=== PATIENT | male | born 1960 | race Caucasian/White ===

== ENCOUNTER 2019-07-10 08:47 | Outpatient (CLI) | payer OTHER, SELFPAY | END 2019-07-10 08:48 | disposition home or self-care (01) | LOC: ANHCOVIDDT 08:48 | PROVIDERS: PCP Internal Medicine; Visit Provider Internal Medicine Gastroenterology | DX: Z01.818 Encounter for other preprocedural examination (principal); Z11.59 Encounter for screening for other viral diseases | CPT/HCPCS: 87635; C9803; U0003 ==

== ENCOUNTER 2019-07-13 02:15 | Day surgery (SDC) | payer OTHER, SELFPAY ==
[2019-07-07 14:38] VITALS: BMI 32.0
[2019-07-13 08:23] VITALS: BP 148/95; PULSE 65; RESP 20; TEMP 36.6; O2SAT 98
[2019-07-13] MEDS: LACTATED RINGERS 1,000 ML 150 ML IV CONT (08:40)
--- NOTE | 2019-07-13 08:43 | WPDANESEPPF ---
Anes - Initial Pre Proc Eval Procedure: Operation Date: 07/13/19 09:30 Proposed Procedures p Screening Colonoscopy - Pavel Curry MD Date/Time: 07/13/19 08:43 Surgeon: Pavel Curry MD Pre Op Diagnosis: Neoplasm Screening Patient Data Age: 59 Gender: M Height: 1.83 m Weight: 103.4 kg Last Vital Signs Temp 36.6 C 07/13/19 08:23 Pulse 65 07/13/19 08:23 Resp 20 07/13/19 08:23 BP 148/95 H 07/13/19 08:23 Pulse Ox 98 07/13/19 08:23 Allergies Allergy/AdvReac Type Severity Reaction Status Date / Time No Known Allergies Allergy Unknown Verified 07/13/19 08:22 Home Medications Medication Instructions Recorded Confirmed Type losartan 100 mg PO DAILY 07/07/19 07/07/19 History omeprazole 40 mg PO DAILY 07/07/19 07/07/19 History Patient hx anesthesia problems: none Family hx anesthesia problems: none [facility] Past Medical History Medical History (Updated 07/13/19 @ 08:44 by Brad Del Valle DO) Hypertension Family History Family History (System 03/15/19 @ 13:13 by Audelia Avila) Father Hypertension Family history of lung cancer Family history of malignant neoplasm of brain Mother Family history of glaucoma Other Carcinoma of colon Social History Social History (System 03/15/19 @ 13:13 by Audelia Avila) Smoking status: Never smoker Alcohol intake: current Gender identity (if verbalized by the patient): Male Anes - Eval Final PreProcedure Day of Procedure 07/13/19 08:43 Patient weight: obese Heart: regular rate and rhythm Lungs: clear to auscultation and normal air movement Airway: Mallampati scale class II Neurological: alert and oriented Last oral intake: >/= 8 hours ASA classification: III Emergent: no Anesthetic plan: proceed Anesthesia type and monitoring: general GIVS and standard monitoring Informed Consent: The patient's anesthetic plan and its attendant risks and benefits were discussed with the patient/family/POA. Questions were solicited and answers provided to the satisfaction of the patient/family/POA.
--- NOTE | 2019-07-13 09:12 | WPDGICN ---
Assessment and Plan Assessment and plan (1) Encounter for screening for colorectal malignant neoplasm: Code(s): Z12.11 - Encounter for screening for malignant neoplasm of colon; Z12.12 - Encounter for screening for malignant neoplasm of rectum Status: Acute Assessment and Plan: Patient presents for screening colonoscopy is never had one before his family history is significant that his father had colon polyps. further recommendations will be given after colonoscopy. (2) Family history of colonic polyps: Code(s): Z83.71 - Family history of colonic polyps Status: Acute GI Consult Note Consult date/time: 07/13/19 09:12 HPI: Shaun Paniagua III is a 59 year old male Seen in evaluation at the request of SALVADOR Estrada. Patient presents for neoplasia screening. Current weight appetite bowel movements are normal. He denies any blood in his stools. He denies abdominal pain. His bowel habits are normal and regular. Family history is significant his father had colon polyps at older age. Review of Systems Review of Systems: All systems reviewed & are unremarkable except as noted in HPI and below PMFSH Past Medical History Medical History Hypertension Family History Family History Father Hypertension Family history of lung cancer Family history of malignant neoplasm of brain Mother Family history of glaucoma Other Carcinoma of colon Social History Social History Smoking status: Never smoker Alcohol intake: current Gender identity (if verbalized by the patient): Male Meds Home Medications and Allergies Home Medications Medication Instructions Recorded Confirmed Type losartan 100 mg PO DAILY 07/07/19 07/07/19 History omeprazole 40 mg PO DAILY 07/07/19 07/07/19 History Allergies Allergy/AdvReac Type Severity Reaction Status Date / Time No Known Allergies Allergy Unknown Verified 07/13/19 08:22 Vital Signs Vital Signs - 24 hr 07/13/19 08:23 Temperature 36.6 C Pulse Rate 65 Respiratory Rate 20 Blood Pressure 148/95 H Pulse Oximetry 98 Exam Narrative: Exam Narrative: Physical exam reveals patient to be alert. Vital signs are stable. HEENT exam unremarkable. Lungs are clear to auscultation and percussion. Heart is without murmur or extra sounds. Abdominal exam bowel sounds are present soft nontender with no organomegaly. Digital external rectal exam is normal.
[2019-07-13] MEDS: SIMETHICONE ORAL SUSPENSION 20 MG/0.3 ML 30 ML BOTTLE 0.6 ML IRRIGATION (09:36)
[2019-07-13 09:48] VITALS: BP 100/60; PULSE 60; RESP 16; O2SAT 100
[2019-07-13 09:58] VITALS: BP 117/72; PULSE 60; RESP 25; O2SAT 100
[2019-07-13 10:08] VITALS: BP 134/81; PULSE 56; RESP 19; O2SAT 97
== END 2019-07-13 10:33 | disposition home or self-care (01) ==
PROVIDERS: PCP Internal Medicine; Visit Provider Internal Medicine Gastroenterology
PROC: 0DJD8ZZ Inspection of Lower Intestinal Tract, Via Natural or Artificial Opening Endoscopic (ICD-10-PCS; CPT 45378; principal; 2019-07-13 09:30)
DX: Z12.11 Encounter for screening for malignant neoplasm of colon (principal); K62.1 Rectal polyp; K64.8 Other hemorrhoids; Z83.71 Family history of colonic polyps; I10 Essential (primary) hypertension; E66.9 Obesity, unspecified; Z68.30 Body mass index [BMI] 30.0-30.9, adult
CPT/HCPCS: 45385; 88305; J2704; J7120

== ENCOUNTER 2023-09-15 07:27 | Outpatient (CLI) | payer OTHER, SELFPAY ==
--- NOTE | ~2023-09-15 | XR_ITS ---
XR knee RT 3V Ordering provider: Yajaira Estrada, BERHANE History: . R knee pain . Comparison: None. FINDINGS: BONES: No acute fracture or dislocation. JOINT SPACES: Narrowing of the medial compartment. Narrowing of the patellofemoral joint. SOFT TISSUES: Normal. IMPRESSION: No acute osseous abnormality right knee. Reviewed, dictated and finalized at location A.
== END 2023-09-15 07:28 ==
PROVIDERS: PCP Physician Assistant; Visit Provider Physician Assistant
DX: M25.561 Pain in right knee (principal)
CPT/HCPCS: 73562

== ENCOUNTER 2023-11-05 13:47 | Outpatient (CLI) | payer OTHER, SELFPAY ==
--- NOTE | 2023-11-05 14:06 | ECG_ITS ---
Test Date: 2023-11-05 14:19:35 Measurements Intervals [place] Rate: 62 P: 35 RI: 172 QRS: 29 QRSD: 93 T: 56 QT: 381 QTc: 389 Interpretive Statements SINUS RHYTHM MINIMAL Q WAVES- INFERIOR LEADS BASELINE ARTIFACT- I, II, III, AVR, AVL BORDERLINE ECG No previous ECG available for comparison Electronically Signed On 11-05-2023 14:42:50 CDT by Fredrick Esteves D.O.
[2023-11-05 14:12] LABS: Hematocrit 44.3 % (42.0-52.0); Hemoglobin 15.2 g/dL (14.0-18.0)
[2023-11-05 14:19] LABS: Albumin Level 4.9 g/dL (3.5-5.1); Estimated Glomerular Filt Rate > 60; Glucose 123 mg/dL (65-110)
[2023-11-05 14:40] LABS: Hemoglobin A1C 5.8 % (<5.7)
== END 2023-11-05 13:48 | disposition home or self-care (01) ==
LOC: ANHLAB 13:48
PROVIDERS: PCP Physician Assistant; Visit Provider Orthopaedic Surgery
DX: M17.31 Unilateral post-traumatic osteoarthritis, right knee (principal); M17.11 Unilateral primary osteoarthritis, right knee; I10 Essential (primary) hypertension
CPT/HCPCS: 36415; 82040; 82565; 82947; 83036; 85014; 85018; 93005

== ENCOUNTER 2024-01-05 13:47 | Outpatient (CLI) | payer OTHER, SELFPAY ==
[2024-01-05 15:13] LABS: Basophils Absolute Auto 0.1 K/mm3 (0.0-0.1); Basophils Percent Auto 0.9 % (0.2-1.2); Eosinophils Absolute Auto 0.3 K/mm3 (0-0.3); Hematocrit 42.5 % (42.0-52.0); Hemoglobin 14.5 g/dL (14.0-18.0); Immature Granulocyte Absolute 0.02 K/mm3 (0.00-0.031); Immature Granulocyte Percent A 0.3 % (0-0.5); Lymphocytes Absolute Auto 2.14 K/mm3 (0.9-3.2); Lymphocytes Percent Auto 33.9 % (18.3-44.2); Mean Corpuscular HGB Conc 34.1 g/dl (32-36); Mean Corpuscular Hemoglobin 31.1 pg (26-34); Mean Corpuscular Volume 91.2 fl (80-100); Mean Platelet Volume 11.2 fl (7.4-10.4); Monocytes Absolute Auto 0.8 K/mm3 (0.1-0.6); Monocytes Percent Auto 12.2 % (2.6-8.5); Neutrophils Absolute Auto 3.1 K/mm3 (1.3-6.7); Neutrophils Percent Auto 48.7 % (45.5-73.1); Platelet Count Result 202 k/mm3 (150-375); Red Blood Count 4.66 M/mm3 (4.6-6.20); Red Cell Distribution Width 12.6 % (11.5-14.5); White Blood Count 6.3 K/mm3 (4.5-10.0)
[2024-01-05 15:24] LABS: Albumin Level 4.8 g/dL (3.5-5.1); Estimated Glomerular Filt Rate > 60; Glucose 98 mg/dL (65-110)
[2024-01-05 16:36] LABS: MRSA (PCR) NOT DETECTED (NOT DETECTE)
[2024-01-05 16:45] LABS: Urine Cotinine NEGATIVE
== END 2024-01-05 13:48 | disposition home or self-care (01) ==
LOC: ANHSURGERY 13:52
PROVIDERS: PCP Physician Assistant; Visit Provider Orthopaedic Surgery
DX: M17.11 Unilateral primary osteoarthritis, right knee (principal); Z01.818 Encounter for other preprocedural examination
CPT/HCPCS: 80307; 82040; 82565; 82947; 85025; 87641

== ENCOUNTER 2024-01-27 01:34 | Day surgery (SDC) | payer OTHER, SELFPAY ==
[2024-01-05 14:05] VITALS: BP 146/81; PULSE 52; RESP 16; TEMP 36.7; O2SAT 98; BMI 32.7
--- NOTE | 2024-01-05 14:22 | PC.NURSE ---
Report to the Outpatient Waiting Room, entrance under the green pavilion located off [facility], at time ____0600am___ on date _01/27/24 . Planned Procedure Time: 0730am .? Time changes happen often and if your time is changed the preop area will call you the afternoon before. - You and your visitor will be asked to self-screen and do not enter if you have any COVID symptoms. Please call surgeon if you need to reschedule. - A mask is optional within the hospital at this time. Patients may have clear liquids (water, carbonated beverages, clear teas, apple juice) until 3 hours prior to surgery with a maximum of 20 ounces. - No food from midnight until time of surgery and no smoking (0430am) Take only the following medications with a SIP of water on the morning of surgery: __Amlodipine, tylenol if needed for pain DO NOT STOP ANY OF YOUR OTHER PRESCRIPTION MEDICATIONS PRIOR TO SURGERY EXCEPT THE FOLLOWING Medications to discontinue per physician None Date to take last dose____None Please no make-up, nail german, hairspray, perfume, deodorant, or body powder the day of surgery.? No jewelry (including any body piercings) or valuables the day of surgery, leave them at home.? Please take a shower or bath the night before, or the morning of, surgery with an antibacterial soap.?( Dial ) Wear comfortable, loose fitting clothing.? - Jewelry must be removed prior to entering the operating room.? Rings and piercings that are not removed may be cut off. - The hospital will not accept responsibility for valuables.? - Please leave all valuables, including medications, at home the day of surgery. If you are going home after surgery, a licensed freight delivery driver must drive you home.? - NO public transportation without another adult if you receive anesthesia. - We recommend that an adult stay with you for 24 hours following discharge. - We also recommend that you do not drive, make important decision, drink alcoholic beverages, or take any drugs that were not prescribed by your health care provider for at least 24 hours after your discharge time. Follow any additional instructions given to you from your surgeon. Telephone instructions given to __Patient and asked if any additional questions and then verbalized understanding. Patient advised to call surgeon office or pre surgery nurse liaison [phone] if any additional questions.
--- NOTE | 2024-01-26 15:45 | WPDANESEPP ---
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 Patient Data Age: 63 Gender: M Height: 1.8 m Weight: 106.4 kg Last Vital Signs Temp 36.7 C 01/05/24 14:05 Pulse 52 L 01/05/24 14:05 Resp 16 01/05/24 14:05 BP 146/81 H 01/05/24 14:05 Pulse Ox 98 01/05/24 14:05 O2 Del Method Room Air 01/05/24 14:05 Allergies Allergy/AdvReac Type Severity Reaction Status Date / Time No Known Allergies Allergy Unknown Verified 01/05/24 14:03 Home Medications Medication Instructions Recorded Confirmed Type losartan 100 mg tablet 100 mg PO DAILY 07/07/19 01/05/24 History omeprazole 40 mg capsule,delayed 40 mg PO DAILY 07/07/19 01/05/24 History release amlodipine 10 mg tablet 10 mg PO DAILY 01/05/24 01/05/24 History Patient hx anesthesia problems: post op nausea/vomiting Family hx anesthesia problems: none Results Review: All pre-operative results and documents have been reviewed as part of the pre-operative evaluation. [facility] Past Medical History Medical History (Updated 01/26/24 @ 15:48 by Kathryn Pinto CRNA) Hypertension Family History Family History Father Hypertension Family history of lung cancer Family history of malignant neoplasm of brain Mother Family history of glaucoma Other Carcinoma of colon Social History Social History Smoking status: Former smoker Tobacco type: cigars Smoking end date: 12/24/23 Additional smoking assessment comments: No cigars in 10 days Alcohol intake: current Drinks per week: 1 Substance use: current Substance use type: other Other substance usage details: gummies to sleep few times a month Living arrangements: with family Additional living arrangements comments: Gender identity (if verbalized by the patient): Male Spiritual care concerns: No Exam Day of Procedure 01/26/24 15:45 Patient weight: obese
[2024-01-27] VITALS (16 sets, daily range): BP systolic 130–158; BP diastolic 77–99; PULSE 66–97; RESP 12–18; TEMP 36.7–36.8; O2SAT 91–98
--- NOTE | ~2024-01-27 | XR_ITS ---
EXAMINATION: [id number] DATE: 01/27/2024 10:57 SUPERVISOR PRESS ROOM INDICATION: Right total knee arthroplasty TECHNIQUE: 2 views right knee FINDINGS: There is a right total knee arthroplasty in expected position. Subcutaneous gas with fluid and air in the joint are consistent with recent surgery. No evidence of periprosthetic fracture. IMPRESSION: 1. Recent right total knee arthroplasty. Reviewed, dictated and finalized at location B. [facility] RO[facility]
[2024-01-27] MEDS: LACTATED RINGERS 1,000 ML 30 ML IV CONT ×2 (06:45→10:19)
[2024-01-27] MEDS: TRANEXAMIC ACID 1,000MG/ISO100 1,000 MG/100 ML BAG 200 MG IVPB (06:45)
[2024-01-27] MEDS: ACETAMINOPHEN 500 MG TABLET 1000 MG PO (06:45)
--- NOTE | 2024-01-27 07:00 | P.PNAN_ITS ---
Anes - Eval Final PreProcedure Day of Procedure 01/27/24 07:00 Patient weight: obese Heart: regular rate and rhythm Lungs: clear to auscultation Airway: Mallampati scale class II Neurological: alert and oriented Last oral intake: >/= 8 hours ASA classification: III Emergent: no Anesthetic plan: proceed Anesthesia type and monitoring: general LMA and standard monitoring Results Review: All pre-operative results and documents have been reviewed as part of the pre- operative evaluation. Informed Consent: The patient's anesthetic plan and its attendant risks and benefits were discussed with the patient/family/POA. Questions were solicited and answers provided to the satisfaction of the patient/family/POA.
--- NOTE | 2024-01-27 07:16 | WPDHPUPDATE1 ---
History and Physical Update Update Date/Time: 01/27/24 07:16 History and Physical has been reviewed, including an updated exam of the patient. There are NO changes in the patient's condition. Risks, benefits, and alternatives have been discussed and questions answered. Patient agrees to proceed with procedure.
--- NOTE | 2024-01-27 07:19 | P.OP_ITS ---
Procedure Note - Detailed Date of Procedure 01/27/24 Pre-op Diagnosis Right knee post traumatic degenerative arthritis. Post-op Diagnosis Same Procedure Performed Calipered, kinematically aligned total knee replacement right knee. 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 Injured during football in his youth. History of several open surgeries over the years. Contracture 10? to 90?. Findings According to the calipered kinematic alignment principles, the knee was balanced by the following verification checks incorporating 6 caliper measurements, using an insert goniometer to select the insert thickness, and adjusting the tibial resection following the kinematic alignment algorithm (see figure 160.10 published in [employer] chapter on kinematic alignment total knee arthroplasty.) The steps verified the femoral and tibial components were kinematically aligned coincident to the patient's pre arthritic joint lines, which closely restored the [place] tibial compartment forces and ligament laxities without ligament release. The Medacta GMK SperiKA knee, designed specifically for kinematic alignment, fit optimally. PCL released. The record of verification checks were documented and scanned into the chart. Distal Femoral Resection: Distal Medial 6 mm(cartilage worn), Distal Lateral 6 mm(cartilage worn) Target thickness of 8mm Unworn, 6mm Worn (No Cartilage). Posterior Femoral Resection: Posterior Medial 5 mm(cartilage worn), Posterior Lateral 5 mm(cartilage worn). Target thickness of 7mm Unworn, 5mm Worn (No Cartilage). Description of Procedure General anesthesia was administered. A well-padded tourniquet was placed high on the thigh. The limb was prepped and draped in the usual sterile fashion. The limb was exsanguinated and the tourniquet inflated to 300 mmHg. A longitudinal incision was created over the midline of the knee. Sharp dissection was taken through subcutaneous tissues. Electrocautery was used for hemostasis. A trivector approach to the knee joint was performed. The ACL, anterior horns of the menisci, and fat pad were excised, and a subperiosteal dissection was carried along the posterior medial border of the tibia. The thickness of the [place] patella was measured with a caliper. The patella was resected using the oscillating saw. The best fitting anatomic patella button was selected. The fixation holes were drilled. When the patella and patella buttons combined thickness was thicker than the [place] patella, the patella was recut. Starting midway between the top of the notch in the anterior femoral cortex, I drilled a 9 mm diameter hole parallel to the anterior cortex to minimize flexion of the femoral component and promote patella tracking. I verified the existence of a 5-10 mm bone bridge between the posterior aspect of the hole and the anterior limit of the intercondylar notch. An intraosseous positioning bon was inserted 10 cm into the femur perpendicular to the distal joint line and parallel to the anterior cortex. I used a distal femoral referencing guide that compensated 2 mm when the cart ilage was worn on the distal medial femoral condyle, and 2 mm when the cartilage was worn on the distal lateral femoral condyle. The basis for setting the distal and posterior femoral resection guide is knowing that the varus and valgus grade II to IV Kellegren-Chauncey osteoarthritic knees have negligible bone wear at 0? and 90? and that the mean full-thickness cartilage wear approximates 2 mm. I measured the thickness of distal femoral resections with a caliper to +/- 0.5 mm. The thickness of each resection was adjusted to match the thickness of the respective condyle of the femoral component within 0.5 mm of target after compensating for cartilage wear and kerf. When the distal resection was 1-2 mm too thin, a recut guide was used to adjust the cut. When the distal resection was too thick, a 1 or 2 mm thick washer was fixed to the back of the 4-in-1 chamfer block to rick a corrective gap between the femoral component and distal femur. I set posterior femoral referencing guide at 0? orientation to position the pin holes for the 4 in 1 chamfer block. The judah wing measured the width of the distal femoral resection and selected the size of the 4 in 1 chamfer block and femoral component. The AP sizer confirmed the size. I measured the thickness of the posterior femoral resections with a caliper before making the anterior and chamfer cuts. I adjusted the thicknesses of each resection to match the thickness of the respective condyle of the femoral component within +/-0.5 mm after compensating for cartilage wear and curve. When a posterior resection femoral resection was 1-2 mm too thick or thin a corrective correction was made by shifting or rotating the 4 in 1 chamfer block as needed. The chamfer block was secured in the correct position with compression screws. The anterior and chamfer femoral resections were made. These caliper measurements and corrections verified that the femoral component was set coincident with the patient's pre-arthritic distal and posterior femoral joint lines. I removed all the medial and lateral femoral and tibial osteophytes to restore the pre arthritic length of the medial and lateral collateral ligaments. I enoch AP lines along the major axis of the lateral tibial plateau in between the tibial spines which identified the flexion extension plane of the knee. A conventional extramedullary tibial resection guide was applied to the ankle. An judah wing was placed medially in the saw slot. The varus valgus angle of the tibial resection guide was adjusted until the guide paralleled the proximal tibial articular surface after compensating for cartilage and bone wear. The slope of flexion extension angle of the tibial resection guide was adjusted until the judah wing paralleled the slope of the medial tibia after compensating for wear. The AP axis of the tibial resection guide was adjusted parallel to the two lines. The proximal tibia was resected, partially releasing the insertion of the posterior cruciate ligament. The thickness of the medial and lateral lateral tibial condyle was measured at the base of the tibial spines. I visually verified the slope of the medial border of the resection was parallel to the patient's pre arthritic slope after compensating for cartilage and bone wear. I removed the remnants of the posterior horns of the menisci and posterior osteophytes and cauterized the inferior lateral genicular vessels. The Aquamantys bipolar device was also used to for additional hemostasis. When the knee had a preoperative flexion contracture of 20? or more I teased the capsule off the posterior femur with a curved 3 quarter-inch osteotome. I administered the posterior femoral periosteal injection by delivering 10 cc using a 20 gauge spinal needle at the most medial and 10 cc at the most lateral femoral spur surface which reduced the risk of injury to the posterior neurovascular structures. I followed 6 options in a decision tree to fine tune the varus valgus and poste rior slope orientation of the tibial component to restore the patient's pre arthritic tibial joint line and limb alignment. First, I adjusted the varus- valgus orientation of the proximal tibia resection working in 1 degree to 2 degree increments until there was negligible medial and lateral lift off of the distal femoral and proximal tibial resection from the spacer block during a varus valgus laxity assessment in extension. I selected the largest anatomic shape trial tibial base plate that fit within the cortical boundary of the proximal tibial resection. The base plate was best fit parallel to the cortical boundary which set the Internal-external orientation of the anterior to posterior and medial to lateral positions. The best fit method set the AP axis of the tibial base plate and insert parallel to the flexion extension plane of the pre arthritic knee. I pinned the trial tibial base plate, prepared the cruciate slot, and fixed the base plate to the tibia with the cruciate stem. I inserted the trial femoral component. The knee was placed in full extension. Varus valgus laxity is of the knee with trial components were assessed. When asymmetric laxity was observed a 1-2 degree varus or valgus recut guide was used to fine tune the tibial resection until the laxity was 1 degree or less in full extension like the [place] knee. The following steps determined the optimal insert thickness within +/-1 mm. First I inserted an insert goniometer that matched the thickness of the spacer block. I reduced the patella and then with the knee in maximum extension, I verified the knee hyperextended a few degrees and had negligible varus valgus laxity, like the pre arthritic knee. Next, I measured the external tibial orientation which was the angle the insert goniometer intersected the sagittal line on the medial condyle of the femoral trial component. Then with the knee in 15-30 degrees flexion I verified a 3-4 mm gap in the lateral compartment and no gap in the medial compartment during a 2nd varus valgus laxity test. Next, I placed the knee in 90? of flexion and the foot resting on the operating table and measured the internal tibial orientation. I repeated the steps until I identified the insert thickness that provided the highest external tibia orientation in extension and the highest internal tibial orientation at 90? flexion without anterior lift-off of the insert from the tibial base plate. The insert with this thickness was implanted. I applied a posterior drawer test with the tibia distracted by gravity and verified no posterior subluxation of the tibia relative to the femur. The patella remained centered on the trochlea and tracked well throughout the entire arc of flexion and extension. I used pulse lavage to clean the bony surfaces of debris and dried bone. I cemented the tibial, femoral, and patellar components using 1 bag of methylmethacrylate with Gentamycin, then rechecked the stability at full extension, 15-30 degrees, and 90? flexion and verified faith of the entire arc of motion of the knee. The circulating nurse confirmed the sponge and needle counts were correct. I used pulse lavage to rinse the joint and wound. The extensor mechanism was closed with interrupted #1 Vicryl suture and #1 running Stratafix suture. The subcutaneous layer was closed with interrupted #1 Vicryl suture followed by 2-0 Stratafix and 3-0 Stratafix. Steri-Strips placed on the skin. Silver impregnated occlusive dressing applied to the wound. A light gauze wrap and Kd bandage were placed. The patient was transferred to the recovery room in stable condition. There were no complications. Implants Medacta K spheriKA Femoral component SpheriKA size 6, tibial component size 5, vitamin-E flex insert, thickness 12mm, Anatomic patella implant size 3. Estimated Blood Loss 100 Drains No Pathology None sent Complications No immediate complications Condition Stable Disposition PACU [facility] Billing Surgery - Charge Forward: Surgery Billing
[2024-01-27] MEDS: ceFAZolin 2 GM/D5W 50 ML 2 GM/50 ML BAG IVPB (08:00)
[2024-01-27] MEDS: SODIUM CHLORIDE 0.9% IV 37.7 ML, MORPHINE SULFATE INJ (*CRX) 2 MG, ROPivacaine HCL 1% 2... INFILTRATE (08:10)
[2024-01-27] MEDS: GENTAMICIN BONE CEMENT REFOBACIN 1 EACH TOPICAL (09:08)
[2024-01-27] MEDS: TRANEXAMIC ACID 1,000 MG/10 ML AMPUL 1000 MG IV PUSH (09:50)
[2024-01-27] MEDS: fentaNYL CITRATE INJ (*CRX) 100 MCG/2 ML VIAL 25 MCG IV PUSH ×2 (11:35→11:47)
--- NOTE | 2024-01-27 12:28 | SUR.PHASEII ---
1210 PHYSICAL AND OCCUPATIONAL THERAPISTS CALLED. LUNCH ORDERED. 1225 PHYSICAL THERAPIST HERE WITH PATIENT.
[2024-01-27] MEDS: oxyCODONE HCL (*CRX) 5 MG TAB IR PO (12:38)
--- NOTE | 2024-01-27 12:41 | SUR.PHASEII ---
1230- PT/OT at bedside to work with patient
[2024-01-27] MEDS: ONDANSETRON INJ 4 MG/2 ML VIAL IV PUSH (13:14)
--- NOTE | 2024-01-27 13:15 | SUR.PHASEII ---
Pt requesting Zofran script to discharge with for at home - MD Dias and Shahbaz (PA) notified.
--- NOTE | 2024-01-27 13:54 | SUR.PHASEII ---
1354 - PT at bedside to work with patient. Patient has been eating lunch tray delivered by dietary with no nausea / vomiting.
--- NOTE | 2024-01-27 14:44 | SUR.PHASEII ---
1430 - Pt has been cleared by PT and OT to discharge home. MD Dias at bedside. Pt states he feels good and is ready to discharge home.
== END 2024-01-27 14:53 | disposition home or self-care (01) ==
PROVIDERS: PCP Physician Assistant; Visit Provider Orthopaedic Surgery
PROC: (CPT 27447; principal; 2024-01-27 07:30)
DX: M17.31 Unilateral post-traumatic osteoarthritis, right knee (principal); T14.90XS Injury, unspecified, sequela; X58.XXXS Exposure to other specified factors, sequela; I10 Essential (primary) hypertension; E66.9 Obesity, unspecified; Z68.32 Body mass index [BMI] 32.0-32.9, adult; Z87.891 Personal history of nicotine dependence
CPT/HCPCS: 27447; 36415; 73560; 86850; 86900; 86901; 97110; 97161; 97165; 97530; C1776; A9270; C1713; J0171; J0690; J1100; J1171; J1885; J2003; J2250; J2270; J2405; J2704; J2795; J3010; J7120

== ENCOUNTER 2024-06-23 01:12 | Day surgery (SDC) | payer OTHER, SELFPAY ==
[2024-06-14 08:13] VITALS: BMI 32.8
--- OUTSIDE RECORDS SUMMARY | 2024-06-23 01:15 | XMS_ITS ---
Author Organization Unknown Medications Medication Instructions Effective Dates (start - sto p) Status amlodipine 5 MG Oral Tablet 2022T00:00:00.000+00:00 - Completed amlodipine 5 MG Oral Tablet 2021T:00:00.000+00:00 - Completed amlodipine 5 MG Oral Tablet 2022:00:00.000+00:00 - Completed losartan potassium 100 MG Or al Tablet 3055-64-10O24:00:00.000+00:0 0 - Completed omeprazole 40 MG Delayed Rel ease Oral Capsule 8308-15-49T95:00:00.000+00:0 0 - Completed losartan potassium 100 MG Or al Tablet 8258-53-18T48:00:00.000+00:0 0 - Completed omeprazole 40 MG Delayed Rel ease Oral Capsule 5607-91-97P87:00:00.000+00:0 0 - Completed losartan potassium 100 MG Or al Tablet 5944-37-33Q86:00:00.000+00:0 0 - Completed losartan potassium 100 MG Or al Tablet 5275-97-08K51:00:00.000+00:0 0 - Completed omeprazole 40 MG Delayed Rel ease Oral Capsule 8300-64-27I40:00:00.000+00:0 0 - Completed omeprazole 40 MG Delayed Rel ease Oral Capsule 6623-90-46I24:00:00.000+00:0 0 - Completed amlodipine 5 MG Oral Tablet 2021:00:00.000+00:00 - Completed Patient Care team information Name Category Status Period Participants - - Proposed period not known -
--- OUTSIDE RECORDS SUMMARY | 2024-06-23 01:15 | XMS_ITS | Continuity of Care Document ---
Author Organization [facility] Address [address] [place] [address] [address] [place] [address] Phone Care Team Providers Care Band Saw Runner Name Role Phone Doisy, Edward Unavailable Unavailable Advance Directives Directive Yes / No Effective Date File Name No Information Encounters Encounter Description Practice Location Reason(s) For Visit Diagnoses Date Provider Providers Copied on Encounter [facility], [address], [place], [place], [id number], [place] tel:[phone] SEC Courtney Valdez No Information 0-200 1 Doisy Edward. [address] , [address], [place], [address], [place]. tel:[phone] Family History Family Member Type Diagnosis Age At Onset No Information Payers Payer name Insurance type Covered constitution party ID Authoriza tion(s) [employer] SOI CI [id number] Social History Type Description Quantity Date Captured Comments Sex Male Smoking Status No Information Chief Complaint And Reason For Visit No Information Reason For Referral Reason For Referral No Information History Of Present Illness Encounter Date Complaint History Of Prese nt Illness No Information Functional Status Date Functional Assessmen t No Information Instructions Date Instruction Additional Infor mation No Information Assessments Type Assessment Date No Information Patient Care Teams Name Effective Dates (start - stop) Status Members No Information
--- OUTSIDE RECORDS SUMMARY | 2024-06-23 01:15 | XMS_ITS | Data Portability ---
Author Organization [facility] [address] [place] [address] Care Team Providers Care Sizing Machine Operator Name Role Phone ILA AGRAWAL Primary Care Provider Unavailab le Assessment No assessment recorded. Plan of Treatment Reminders Order Date Submit Date Provider Last Modified By Organization Details Last Modified Time Details Appointments ANY 15 2024 08:00A M SALVADOR Echevarria Not available Not available Not available Lab TSH + free T4, serum 2023 024 Proenza Schouer [facility], [address], [place], [address], 09/14/2023 09:28:42 CMP, serum or plasma 2023 024 [employer] [facility], [address], [place], [address], 09/20/2023 16:36:09 CBC w/ auto diff 2023 024 [email or web address] [facility], [address], [place], [address], 09/20/2023 16:36:31 lipid panel, serum 2023 024 Proenza Schouer [facility], [address], [place], [address], 09/14/2023 09:28:42 PSA, serum or plasma 2023 024 [employer] [facility], [address], [place], [address], 09/20/2023 16:37:11 HbA1c (hemoglob in A1c), blood 2023 024 [email or web address] [facility] [facility], [address], [place], [address], 09/20/2023 16:37:06 Referral orthopedi c surgeon referral 2023 024 SUZETTE Dias MD, [address], [address], [place], [address], 11/18/2023 17:04:35 Procedures None recorded. Surgeries None recorded. Imaging XR, knee, 3 view 2023 024 [facility], [address], [place], [address], 09/16/2023 07:29:20 Medication Orders amlodipin e 10 mg tablet 2023 024 [id number], [address] [place], [address], 03/14/2024 09:31:27 Patient TargetsNo targets recorded. Patient Instructions Encounter Date Encounter Id Patient Instructions Last Modified By Organization Details Last Modified Time 08/20/2023 [id number] A healthy lifestyle: care instructions Not available 08/20/2023 09:12:49 03/24/2024 [id number] A healthy lifestyle: care instructions Not available 03/24/2024 09:33:49 Reason for Referral Orthopedic Surgeon Referral for Pain of right knee joint Referring Physician: Ila Agrawal, Internal Medicine, Encounter Date: 08/20/2023 Results Created Date Observation Date Name Description Value Unit Range Abnormal Flag Note LastModifiedBy Organization Detail LastModifiedTime 09/16/19 24 09/15/2023 XR, knee, 3 view No observ ation record ed. [facility] [address], [place], [address], 09/20/2023 16:35:22 01/27/20 24 01/27/2024 XR, knee, 3 view No observ ation record ed. [facility] [address], [place], [address], 01/27/2024 14:33:51 Result Notes None recorded. Problems Name Problem SNOMED Code Status Onset Date Resolution Date Notes Provider Name and Address Organization Details Recorded Time Benign essential hypertensio n 7535621 Active 2023 SALVADOR Echevarria Attn: Accountin g,[address] [facility], [place], [address], [place] [facility] 4 08:43:10 Gastroesoph ageal reflux disease without esophagitis 874189871 Active 2023 SALVADOR Echevarria Attn: Accountin g,[address] [facility], [place], [address], [place] [facility] 4 08:43:11 Body mass index 30+ - obesity 852565668 Active 2023 SALVADOR Echevarria Attn: Accountin g,[address] [facility], [place], [address], [place] [facility] 4 08:45:07 Obesity 403972845 Active 2023 SALVADOR Echevarria Attn: Accountin g,[address] [facility], [place], [address], [place] [facility] 4 08:45:08 Pain of right knee joint 5041056507167 00 Active 2023 SALVADOR Echevarria Attn: Accountin g,[address] [facility], [place], [address], [place] [facility] 4 14:37:47 Long-term drug therapy Active 2023 SALVADOR Echevarria Attn: Accountin g,[address] [facility], [place], [address], [place] [facility] 4 14:37:48 Blood glucose outside reference range 208474314 Active 2024 SALVADOR Echevarria Attn: Lala bynum,[address], [place], [address], [facility] 08:50:44 Problem Notes None recorded. Procedures Surgical History Date Name Laterality Status Provider Name and Address Organization Details Recorded Time Knee Surgery completed Oscar Kaur MA [facility] 03/14/2024 09:32:09 Imaging Results Imaging Date Name Status LastModified by [facility] Details LastModified Time 09/15/2023 XR, knee, 3 view completed [facility] [address], [place], [address], 09/20/2023 16:35:22 01/27/2024 XR, knee, [address] [facility] [address], [place], [address], 01/27/2024 14:33:51 Procedure Notes None recorded. Medical Equipment None Reported. Allergies No known drug allergies Medications Name Sig Start Date Stop Date Status Note LastModified by Organization Details LastModified Time blood pressu solution kit 08/19 completed Not Available Not Available Not Available meloxicam 15 mg tablet Take 1 tablet every day by oral route for 30 days. active Patient is not taking this medicati on anymore. Not Available Not Available Not Available prednison e 5 mg tablet TAKE 1 TABLET BY MOUTH DAILY FOR 3 WEEKS 03/14 completed Not Available Not Available Not Available amlodipin e 5 mg tablet TAKE 1 TABLET BY MOUTH EVERY DAY 08/19 completed Not Available Not Available Not Available omeprazol e 40 mg capsule,d elayed release TAKE 1 CAPSULE BY MOUTH EVERY DAY active Patient is not taking this medicati on anymore. Not Available Not Available Not Available oxycodone -acetamin ophen 5 mg-325 mg tablet 1 - 2 TABLET ORALLY EVERY 4 - 6 HOURS NEEDED FOR PAIN FOR 7 DAYS 03/14 completed Not Available Not Available Not Available amlodipin e 10 mg tablet TAKE 1 TABLET BY MOUTH EVERY DAY active Not Available Not Available No t Available ondansetr on 4 mg disintegr ating tablet 4 MG ORALLY EVERY 8 HOURS active Patient is not taking this medicati on anymore. Not Available Not Available Not Available losartan 100 mg tablet TAKE 1 TABLET BY MOUTH EVERY DAY active Not Available Not Available No t Available Vitals Date Recorded Body height Body mass index (BMI) Body weight Respiratory rate Oxygen saturation Oxygen saturation in Arterial blood by Pulse oximetry Heart rate Systolic blood pressure Diastolic blood pressure Provider Name and Address Organization Details Last Updated DateTime 4 182.88 cm 31.7 kg/m2 712517. 61 g 20 /min 99 % 99 % 88 /min 138 mm[Hg] 90 mm[Hg] Oscar Kaur MA [facility] 4 08:40:03 Date Recorded Systolic blood pressure Diastolic blood pressure Systolic blood pressure Diastolic blood pressure Provider Name and Address Organization Details Last Updated DateTime 08/20/2023 150 mm[Hg] 90 mm[Hg] 148 mm[Hg] 90 mm[Hg] SALVADOR Echevarria Attn: Accounting ,[address] [place], [address] , [facility] 4 09:11:45 Date Recorded Body height Oxygen saturation Oxygen saturation in Arterial blood by Pulse oximetry Heart rate Body mass index (BMI) Body weight Systolic blood pressure Diastolic blood pressure Provider Name and Address Organization Details Last Updated DateTime 5 182.88 cm 98 % 98 % 88 /min 31.7 kg/m2 648698. 61 g 138 mm[Hg] 82 mm[Hg] Oscar Kaur MA [facility] 5 09:35:19 Date Recorded Body height Body mass index (BMI) Body weight Heart rate Oxygen saturation Oxygen saturation in Arterial blood by Pulse oximetry Systolic blood pressure Diastolic blood pressure Provider Name and Address Organization Details Last Updated DateTime 5 182.88 cm 32 kg/m2 014450. 52 g 67 /min 98 % 98 % 130 mm[Hg] 68 mm[Hg] Tonya Joyner MA [facility] 5 09:09:08 Date Recorded Respiratory rate Provider Name a nd Address Organization Details Last Updated DateTime 03/24/2024 16 /min SALVADOR Echevarria Attn: Accounting,[address] [place], [address], [facility] 03/24/2024 09:33:18 Social History Question Answer Notes LastModified by Organizat ion Details LastModified Time Tobacco Smoking Status Never Smoker CHICHI Bruno, [facility] 08/20/2023 08:36:42 Do You Have An Advance Directive? No Information not available 08/20/2023 What Is Your Level Of Alcohol Consumption? Occasional 1X A MONTH Information not available 08/20/2023 Are You Blind Or Do You Have Difficulty Seeing? No Glasses Information not available 08/20/2023 What Is Your Level Of Caffeine Consumption? Moderate Tea Information not available 08/20/2023 In The 14 Days Before Symptom Onset, Have You Had Close Contact With A Laboratory-confir med COVID-19 While That Case Was Ill? No Information not available 08/19/2023 In The 14 Days Before Symptom Onset, Have You Had Close Contact With A Person Who Is Under Investigation For COVID-19 While That Person Was Ill? No Information not available 08/19/2023 Have You Been To An Area Known To Be High Risk For COVID-19? No Information not available 08/19/2023 Are You Deaf Or Do You Have Serious Difficulty Hearing? No Information not available 08/20/2023 What Type Of Diet Are You Following? REGULAR Information not available 08/20/2023 Are There Any Guns Present In Your Home? No Information not available 08/20/2023 What Was The Date Of Your Most Recent Tobacco Screening? 03/24/2024 [email or web address] Information not available 03/24/2024 Do You Use Your Seat Belt Or Car Seat Routinely? Yes Information not available 08/19/2023 Do You Have Smoke And Carbon Monoxide Detectors In Your Home? Yes Information not available 08/19/2023 Do You Use Any Illicit Or Recreational Drugs? No Information not available 08/20/2023 Do You Use Sunscreen Routinely? Yes Information not available 08/20/2023 Has Tobacco Cessation Counseling Been Provided? No Information not available 08/20/2023 Do You Or Have You Ever Used Any Other Forms Of Tobacco Or Nicotine? No Information not available 08/20/2023 Sex: Male Functional Status Question Answer Note LastModified by Organizat ion Details LastModified Time Are you able to care for yourself? Yes Information not available 08/19/2023 What is your exercise level? Occasional Information not available 08/20/2023 Mental Status None recorded. Family History Nothing Reported. Medical History Condition Response Coronary Artery Disease N Other N High Blood Pressure Y Atrial Fibrillation N Thyroid Problems N Kidney or Bladder Problems N Depression N COPD N Blood Clots N GI Problems N Have you had a mammogram in the last yea r? N Skin Problems N Anemia N Heart Attack (HI) N Diabetes N Anxiety Disorder N Muscle, Joint, or Bone Problems N Seizures/Epilepsy N Have you had a colonoscopy in the last 1 0 years? N Acid Reflux (GERD) Y Cancer N Stroke N Allergies N Asthma N Have you had a PSA blood test in the las t year? N High Cholesterol N Hepatitis N Liver Disease N Headaches N Osteoporosis N Heart Failure N Past Encounters Encounter ID Performer Location Encounter Start Date Encounter Closed Date Diagnosis/Indication Diagnosis SNOMED-CT Code Diagnosis ICD10 Code Diagnosis Note [id number] Jd Carlin MD [facility] [address] [address] [place] [address] 08/20/2023 08:30:18 08/20/2023 09:21:27 Benign essential hypertension 6443940 I10 Blood pressure is elevated at 148/90 today, increase amlodipine to 10 mg daily Gastroesop hageal reflux disease without esophagitis 594174939 K21.9 taking about every 3 or 4th day. Symptoms are stable on omeprazole 40 mg Long-term drug therapy 804518370 Z79.899 Routine CBC and CMP labs are due Cholesterol screening 27 4599646 Z13.220 Fasting lipid panel is due Diabetes m ellitus screening 266124517 Z13.1 Annual diabetes screening is due Screening for malignant neoplasm of prostate 253923236 Z12.5 Annual PSA level is due Thyroid di sorder screening 370096266 Z13.29 Annual thyroid function test is due Body mass index 30+ - obesity 241481497 Z68.31 discussed healthy diet, exercise, controllin g carbohydra adelso and added sugars in the diet Obesity 242082095 E66.8 Adult heal th examination 321816114 Z00.01 annual well exam. Pain of ri ght knee joint 1010889823 43190 M25.561 hx of 3-4 surgeries in this right knee. last surgery was in the . He is bone on bone. So much aching pain, arthritis. He tried to get into Ortho but they require he see PCP first for referral. Refer for baseline x-ray of the right knee and refer to orthopedic surgeon. [id number] Jd Carlin MD [facility] [place] [address] [place] [address] 03/24/2024 08:59:38 03/24/2024 09:50:39 Body mass index 30+ - obesity 635276726 Z68.32 discussed healthy diet, exercise, controllin g carbohydra adelso and added sugars in the diet Obesity 914964712 E66.9 Benign ess ential hypertension 1946453 I10 Blood pressure is stable on amlodipine 10 mg daily and losartan 100mg daily. Follow-up for wellness in late August labs to be completed prior Gastroesop hageal reflux disease without esophagitis 715660761 K21.9 taking about every 3 or 4th day. Symptoms are stable on omeprazole 40 mg Long-term drug therapy 140541312 Z79.899 Health Concerns Section Related Observation LastModified by Organization Detai ls LastModified Time None Recorded Concern Status LastModified by Organization Details LastModified Time None Recorded Advance Directives Directive N: Payers Encounter Date Sequence Insurance Name Policy Number Policy Isaacs Covered Member ID Isaacs Member ID Guarantor Name 08/20/2023 1 [employer] (EPO) [id number] Terri Gonzales [id number] Shaun Gonzales 03/24/2024 1 [employer] (EPO) [id number] Terri Gonzales [id number] Shaun Gonzales Notes Date Note Type Note Provider Name and Address Organization Details Recorded Time text/html HypertensionReported bypatient.Notes:pt is stable on losartan 100mg daily and amlodipine 5mg daily.Musculoskeletal PainReported bypatient.Notes:Patient has right knee pain and is interested in x-ray and referral to orthopedic surgeon. They will not see him without referral and x-ray. Right knee is more of an ongoing chronic issue with more recent exacerbation and daily persistent pain that is now bothersome and affecting his activities of daily living. No redness or warmth. Still able to accomplish daily activities but with pain.Reflux/GERDReported bypatient.Notes:pt is stable on omeprazole 40mg daily. SALVADOR Echevarria Attn: Accounting,[address] [place], [address], [facility] 08/29/2023 14:38:59 text/html HypertensionReported bypatient.Notes:pt is stable on losartan 100mg daily and amlodipine 5mg daily.Reflux/GERDReported bypatient.Notes:pt is stable on omeprazole 40mg daily. SALVADOR Echevarria Attn: Accounting,[address] [place], [address], [facility] 03/24/2024 10:05:43
--- OUTSIDE RECORDS SUMMARY | 2024-06-23 01:15 | XMS_ITS | Data Portability ---
Author Organization [facility] [employer], Main Office Address [address] [place] [address] Assessment Encounter Date Assessment Date Assessment LastModified by Organization Details LastModified Time 11/18/2022 11/18/2022 colonoscopy UTD 2019. [email or web address] Not available 11/18/2022 08:59:27 Plan of Treatment Reminders Order Date Submit Date Provider Last Modified By Organization Details Last Modified Time Details Appointments None recorded . Lab PSA, serum or plasma 023 05/01/19 24 [email or web address], [address], [place], [address], 4 18:34:45 lipid panel, serum 023 05/01/19 24 [email or web address], [address], [place], [address], 4 18:34:45 CBC w/ auto diff 023 05/01/19 24 [email or web address], [address], [place], [address], 4 18:34:44 CMP, serum or plasma 023 05/01/19 24 [email or web address] [facility], [address], [place], [address], 4 18:34:45 TSH + free T4, serum 023 05/01/19 24 [email or web address] [facility], [address], [place], [address], 4 18:34:45 HbA1c (hemoglo bin A1c), blood 023 05/01/19 24 [email or web address], [address], [place], [address], 4 18:34:45 Referral None recorded . Procedures None recorded . Surgeries None recorded . Imaging None recorded . Medication Orders None recorded . Patient TargetsNo targets recorded. Patient InstructionsNo instructions recorded. Reason for Referral None Reported. Results Created Date Observation Date Name Description Value Unit Range Abnormal Flag Note LastModifiedBy Organization Detail LastModifiedTime 05/31/19 22 05/31/2021 PSA, TOTAL PSA, total 0.45 NG/mL < or = 4.00 normal The total PSA value from this assay syste m is stand ardiz ed again st the WHO stand larry. The test resul t will be appro ximat stefani 20% lower when brooks red to the equim olar- stand ardiz ed total PSA (Krueger man Coult er). Brooks rison of seria l PSA resul ts shoul d be inter prete d with this fact in mind. This test was perfo rmed using the [place] ns chemi lumin escen t metho d. Value s obtai carol from diffe rent assay metho ds canno t be used inter sifuentes eably . PSA level s, regar dless of value , shoul d not be inter prete d as absol minto evide nce of the prese nce or absen ce of disea se. Not Available [facility] [address] [address] [place], [address], 05/31/2021 12:59:11 05/31/19 22 05/31/2021 CBC (INCL UDES DIFF/ PLT) white blood cell count 7.2 thous and/u L 3.8-10 .8 normal Not Available [facility] [address] [place], [address], 05/31/2021 12:59:10 05/31/19 22 05/31/2021 CBC (INCL UDES DIFF/ PLT) red blood cell count 4.66 devon on/uL 4.20-5 .80 normal Not Available [address], [address], 05/31/2021 12:59:10 05/31/19 22 05/31/2021 CBC (INCL UDES DIFF/ PLT) MCH 30.5 pg 27.0-3 3.0 normal Not Available [address], [address], 05/31/2021 12:59:10 05/31/19 22 05/31/2021 CBC (INCL UDES DIFF/ PLT) hemoglobin 14.2 g/dL 13.2-1 7.1 normal Not Available [address], [address], 05/31/2021 12:59:10 05/31/19 22 05/31/2021 CBC (INCL UDES DIFF/ PLT) hematocrit 41.6 % 38.5-5 0.0 normal Not Available [address], [address], 05/31/2021 12:59:10 05/31/19 22 05/31/2021 CBC (INCL UDES DIFF/ PLT) MCV 89.3 fL 80.0-1 00.0 normal Not Available [address], [address], 05/31/2021 12:59:10 05/31/19 22 05/31/2021 CBC (INCL UDES DIFF/ PLT) MCHC 34.1 g/dL 32.0-3 6.0 normal Not Available [address], [address], 05/31/2021 12:59:10 05/31/19 22 05/31/2021 CBC (INCL UDES DIFF/ PLT) RDW 12.6 % 11.0-1 5.0 normal Not Available [address], [address], 05/31/2021 12:59:10 05/31/19 22 05/31/2021 CBC (INCL UDES DIFF/ PLT) platelet count 227 thous and/u L 140-40 0 normal Not Available [address], [address], 05/31/2021 12:59:10 05/31/19 22 05/31/2021 CBC (INCL UDES DIFF/ PLT) MPV 11.8 fL 7.5-12 .5 normal Not Available [address], [address], 05/31/2021 12:59:10 05/31/19 22 05/31/2021 CBC (INCL UDES DIFF/ PLT) absolute neutrophils 3593 cells /uL 1500-7 800 normal Not Available [address], [address], 05/31/2021 12:59:10 05/31/19 22 05/31/2021 CBC (INCL UDES DIFF/ PLT) absolute lymphocytes 2275 cells /uL 850-39 00 normal Not Available [address], [address], 05/31/2021 12:59:10 05/31/19 22 05/31/2021 CBC (INCL UDES DIFF/ PLT) absolute monocytes 828 cells /uL 200-95 0 normal Not Available [address], [address], 05/31/2021 12:59:10 05/31/19 22 05/31/2021 CBC (INCL UDES DIFF/ PLT) absolute eosinophils 432 cells /uL 15-500 normal Not Available [address], [address], 05/31/2021 12:59:10 05/31/19 22 05/31/2021 CBC (INCL UDES DIFF/ PLT) absolute basophils 72 cells /uL 0-200 normal Not Available [facility] [address] [address], [place], [address], 05/31/2021 12:59:10 05/31/19 22 05/31/2021 CBC (INCL UDES DIFF/ PLT) neutrophils 49.9 % normal Not Available [facility] [address], [address], 05/31/2021 12:59:10 05/31/19 22 05/31/2021 CBC (INCL UDES DIFF/ PLT) lymphocytes 31.6 % normal Not Available [facility] [address], [address], 05/31/2021 12:59:10 05/31/19 22 05/31/2021 CBC (INCL UDES DIFF/ PLT) monocytes 11.5 % normal Not Available [facility] [address], [address], 05/31/2021 12:59:10 05/31/19 22 05/31/2021 CBC (INCL UDES DIFF/ PLT) eosinophils 6.0 % normal Not Available [facility] [address], [address], 05/31/2021 12:59:10 05/31/19 22 05/31/2021 CBC (INCL UDES DIFF/ PLT) basophils 1.0 % normal Not Available [facility] [address], [address], 05/31/2021 12:59:10 05/31/19 22 05/31/2021 HEMOG LOBIN A1C hemoglobin A1C 5.8 %_of_ total _HGB <5.7 high For mandy ne witho ut known diabe adelso, a hemog lobin A1c value betwe en 5.7% and 6.4% is consi stent with predi abete s and shoul d be confi rmed with a follo w-up test. For someo ne with known diabe adelso, a value <7% indic ates that their diabe adelso is well contr olled . A1c targe ts shoul d be indiv idual ized based on durat ion of diabe adelso, age, comor bid condi tions , and other consi derat ions. This assay resul t is consi stent with an incre ased risk of diabe adelso. Curre ntly, no conse nsus exist s valerio stout use of hemog lobin A1c for diagn osis of diabe adelso for child kentrell. Not Available [email or web address] [address] [address] [place], [address], 05/31/2021 12:59:10 05/31/19 22 05/31/2021 COMPR EHENS MARCI METAB OLIC PANEL glucose 101 mg/dL 65-99 high Fasti ng refer ence inter ashley For someo ne witho ut known diabe adelso, a gluco se value betwe en 100 and 125 mg/dL is consi stent with predi abete s and shoul d be confi rmed with a follo w-up test. Not Available [email or web address] [address], [place], [address], 05/31/2021 12:59:09 05/31/19 22 05/31/2021 COMPR EHENS MARCI METAB OLIC PANEL urea nitrogen (BUN) 15 mg/dL 7-25 normal Not Available [email or web address] [address] [place], [address], 05/31/2021 12:59:09 05/31/19 22 05/31/2021 COMPR EHENS MARCI METAB OLIC PANEL creatinine 1.05 mg/dL 0.70-1 .33 normal For patie nts >49 years of age, the refer ence limit for Creat inine is appro ximat stefani 13% highe r for peopl e ident ified as Afric an-Am jose n. Not Available [email or web address] [address] [place], [address], 05/31/2021 12:59:09 05/31/19 22 05/31/2021 COMPR EHENS MARCI METAB OLIC PANEL eGFR non-afr. citizen of [place] 78 mL/mi n/1.7 3m2 > or = 60 normal Not Available [address], [address], 05/31/2021 12:59:09 05/31/19 22 05/31/2021 COMPR EHENS MARCI METAB OLIC PANEL eGFR 90 mL/mi n/1.7 3m2 > or = 60 normal Not Available [address], [address], 05/31/2021 12:59:09 05/31/19 22 05/31/2021 COMPR EHENS MARCI METAB OLIC PANEL BUN/creatini ne ratio not applic able (calc ) 6-22 Not Available [address], [address], 05/31/2021 12:59:09 05/31/19 22 05/31/2021 COMPR EHENS MARCI METAB OLIC PANEL sodium 141 mmol/ L 135-14 6 normal Not Available [address], [address], 05/31/2021 12:59:09 05/31/19 22 05/31/2021 COMPR EHENS MARCI METAB OLIC PANEL potassium 4.5 mmol/ L 3.5-5. 3 normal Not Available [address], [address], 05/31/2021 12:59:09 05/31/19 22 05/31/2021 COMPR EHENS MARCI METAB OLIC PANEL chloride 105 mmol/ L 98-110 normal Not Available [address], [address], 05/31/2021 12:59:09 05/31/19 22 05/31/2021 COMPR EHENS MARCI METAB OLIC PANEL albumin 4.5 g/dL 3.6-5. 1 normal Not Available [address] [place], [address], 05/31/2021 12:59:09 05/31/19 22 05/31/2021 COMPR EHENS MARCI METAB OLIC PANEL carbon dioxide 27 mmol/ L 20-32 normal Not Available [address], [address], 05/31/2021 12:59:09 05/31/19 22 05/31/2021 COMPR EHENS MARCI METAB OLIC PANEL calcium 9.6 mg/dL 8.6-10 .3 normal Not Available [address], [address], 05/31/2021 12:59:09 05/31/19 22 05/31/2021 COMPR EHENS MARCI METAB OLIC PANEL protein, total 7.1 g/dL 6.1-8. 1 normal Not Available [address], [address], 05/31/2021 12:59:09 05/31/19 22 05/31/2021 COMPR EHENS MARCI METAB OLIC PANEL globulin 2.6 g/dL_ (calc ) 1.9-3. 7 normal Not Available [address], [address], 05/31/2021 12:59:09 05/31/19 22 05/31/2021 COMPR EHENS MARCI METAB OLIC PANEL albumin/glob ulin ratio 1.7 (calc ) 1.0-2. 5 normal Not Available [address], [address], 05/31/2021 12:59:09 05/31/19 22 05/31/2021 COMPR EHENS MARCI METAB OLIC PANEL bilirubin, total 0.9 mg/dL 0.2-1. 2 normal Not Available [address], [address], 05/31/2021 12:59:09 05/31/19 22 05/31/2021 COMPR EHENS MARCI METAB OLIC PANEL alkaline phosphatase 36 U/L 35-144 normal Not Available [address], [address], 05/31/2021 12:59:09 05/31/19 22 05/31/2021 COMPR EHENS MARIC METAB OLIC PANEL AST 23 U/L 10-35 normal Not Available [address], [address], 05/31/2021 12:59:09 05/31/19 22 05/31/2021 COMPR EHENS MARCI METAB OLIC PANEL ALT 38 U/L 9-46 normal Not Available [address], [address], 05/31/2021 12:59:05/31/19 22 05/31/2021 LIPID PANEL WITH RATIO S chol/HDLC ratio 3.5 (calc ) <5.0 normal Not Available [address], [address], 05/31/2021 12:59:09 05/31/19 22 05/31/2021 LIPID PANEL WITH RATIO S cholesterol, total 136 mg/dL <200 normal Not Available [address], [address], 05/31/2021 12:59:09 05/31/19 22 05/31/2021 LIPID PANEL WITH RATIO S HDL cholesterol 39 mg/dL > or = 40 low Not Available [address], [address], 05/31/2021 12:59:09 05/31/19 22 05/31/2021 LIPID PANEL WITH RATIO S triglyceride s 117 mg/dL <150 normal Not Available [address], [address], 05/31/2021 12:59:09 05/31/19 22 05/31/2021 LIPID PANEL WITH RATIO S LDL-choleste rol 77 mg/dL _(elena c) normal Refer ence range : <100 Maggie able range <100 mg/dL for prima ry preve ntion ; <70 mg/dL for patie nts with CHD or diabe tic patie nts with > or = 2 CHD risk facto rs. LDL-C is now calcu lated using the Renetta n-Hop kins calcu marie n, which is a valid ated novel metho d provi ding jazlyn r accur acy than the Fried selena equat ion in the estim ation of LDL-C . Renetta alexander SS et al. YONY. 2013; 310(1 9): 2061- 2068 (http ://ed ucati on.Qu Elena TripleLift. com/f aq/FA Q164) Not Available [email or web address] [address] [place], [address], 05/31/2021 12:59:09 05/31/19 22 05/31/2021 LIPID PANEL WITH RATIO S LDL/HDL ratio 2.0 (calc ) Below Goldsmith ge Risk: <2.28 Goldsmith ge Risk: 2.29- 4.90 Moder ate Risk: 4.91- 7.12 High Risk: >7.13 Not Available [email or web address] [address] [address], [place], [address], 05/31/2021 12:59:09 05/31/19 22 05/31/2021 LIPID PANEL WITH RATIO S non HDL cholesterol 97 mg/dL _(elena c) <130 normal For patie nts with diabe adelso plus 1 major ASCVD risk facto r, treat ing to a non-H DL-C goal of <100 mg/dL (LDL- C of <70 mg/dL ) is sridhar marshall optio n. Not Available [email or web address] [address] [address], [place], [address], 05/31/2021 12:59:09 05/31/19 22 05/31/2021 TSH+F REE T4 TSH 1.62 mIU/L 0.40-4 .50 normal Not Available [address], [address], 05/31/2021 12:59:08 05/31/19 22 05/31/2021 TSH+F REE T4 T4, free 1.0 NG/dL 0.8-1. 8 normal Not Available [address], [address], 05/31/2021 12:59:08 05/01/19 23 05/01/2022 TSH+F REE T4 TSH 1.44 mIU/L 0.40-4 .50 normal Not Available [address], [address], 05/01/2022 03:46:39 05/01/19 23 05/01/2022 TSH+F REE T4 T4, free 1.0 NG/dL 0.8-1. 8 normal Not Available [address], [address], 05/01/2022 03:46:39 05/01/19 23 05/01/2022 LIPID PANEL , STAND LARRY cholesterol, total 157 mg/dL <200 normal Not Available [address], [address], 05/01/2022 03:46:40 05/01/19 23 05/01/2022 LIPID PANEL , STAND LARRY HDL cholesterol 37 mg/dL > or = 40 low Not Available [address], [address], 05/01/2022 03:46:40 05/01/19 23 05/01/2022 LIPID PANEL , STAND LARRY triglyceride s 147 mg/dL <150 normal Not Available [address], [address], 05/01/2022 03:46:40 05/01/1905/01/2022 LIPID PANEL , STAND LARRY LDL-choleste rol 96 mg/dL _(elena c) normal Refer ence range : <100 Maggie able range <100 mg/dL for prima ry preve ntion ; <70 mg/dL for patie nts with CHD or diabe tic patie nts with > or = 2 CHD risk facto rs. LDL-C is now calcu lated using the Renetta n-Hop kins calcu marie n, which is a valid ated novel metho d provi ding jazlyn r accur acy than the Fried selena equat ion in the estim ation of LDL-C . Renetta alexander SS et al. YONY. 2013; 310(1 9): 2061- 2068 (http ://ed ucati on.6Wunderkinder rafiqCommonBond. com/f aq/FA Q164) Not Available [email or web address] [address] [place], [place] [address], [address], 05/01/2022 03:46:40 05/01/19 23 05/01/2022 LIPID PANEL , STAND LARRY chol/HDLC ratio 4.2 (calc ) <5.0 normal Not Available [email or web address] [address] [place], [address], 05/01/2022 03:46:40 05/01/1905/01/2022 LIPID PANEL , STAND LARRY non HDL cholesterol 120 mg/dL _(elena c) <130 normal For patie nts with diabe adelso plus 1 major ASCVD risk facto r, treat ing to a non-H DL-C goal of <100 mg/dL (LDL- C of <70 mg/dL ) is consi dered a thera peuti c optio n. Not Available [email or web address] [address] [place], [address], 05/01/2022 03:46:40 05/01/1905/01/2022 COMPR EHENS MARCI METAB OLIC PANEL glucose 103 mg/dL 65-99 high Fasti ng refer ence inter ashley For someo ne witho ut known diabe adelso, a gluco se value betwe en 100 and 125 mg/dL is consi stent with predi abete s and shoul d be confi rmed with a follo w-up test. Not Available [address] [address] [place], [address], 05/01/2022 03:46:41 05/01/19 23 05/01/2022 COMPR EHENS MARCI METAB OLIC PANEL urea nitrogen (BUN) 18 mg/dL 7-25 normal Not Available [address] [address] [place], [address], 05/01/2022 03:46:41 05/01/19 23 05/01/2022 COMPR EHENS MARCI METAB OLIC PANEL creatinine 1.10 mg/dL 0.70-1 .30 normal Not Available [address], [address], 05/01/2022 03:46:41 05/01/19 23 05/01/2022 COMPR EHENS MARCI METAB OLIC PANEL eGFR 77 mL/mi n/1.7 3m2 > or = 60 normal The eGFR is based on the CKD-E PI 2020 everton killian. To calcu late the new eGFR from a previ ous Creat inine or Cysta tin C resul t, go to https ://madhuri paul.maría elena delarosa.o wesley/manny soliman s/ kdoqi /gfr% 5Fcal culat or Not Available [address] [address] [place], [address], 05/01/2022 03:46:41 05/01/19 23 05/01/2022 COMPR EHENS MARCI METAB OLIC PANEL BUN/creatini ne ratio NOT APPLIC ABLE (calc ) 6-22 Not Available [address] [address] [place], [address], 05/01/2022 03:46:41 05/01/19 23 05/01/2022 COMPR EHENS MARCI METAB OLIC PANEL sodium 138 mmol/ L 135-14 6 normal Not Available [address], [address], 05/01/2022 03:46:41 05/01/1905/01/2022 COMPR EHENS MARCI METAB OLIC PANEL potassium 4.1 mmol/ L 3.5-5. 3 normal Not Available [address], [address], 05/01/2022 03:46:41 05/01/1905/01/2022 COMPR EHENS MARCI METAB OLIC PANEL chloride 104 mmol/ L 98-110 normal Not Available [address], [address], 05/01/2022 03:46:41 05/01/1905/01/2022 COMPR EHENS MARCI METAB OLIC PANEL carbon dioxide 25 mmol/ L 20-32 normal Not Available [address], [address], 05/01/2022 03:46:41 05/01/1905/01/2022 COMPR EHENS MARCI METAB OLIC PANEL calcium 9.3 mg/dL 8.6-10 .3 normal Not Available [address], [address], 05/01/2022 03:46:41 05/01/1905/01/2022 COMPR EHENS MARCI METAB OLIC PANEL protein, total 7.0 g/dL 6.1-8. 1 normal Not Available [address], [address], 05/01/2022 03:46:41 05/01/1905/01/2022 COMPR EHENS MARCI METAB OLIC PANEL albumin 4.5 g/dL 3.6-5. 1 normal Not Available [address], [address], 05/01/2022 03:46:41 03/09/20 23 05/01/2022 COMPR EHENS MARCI METAB OLIC PANEL globulin 2.5 g/dL_ (calc ) 1.9-3. 7 normal Not Available [address], [address], 05/01/2022 03:46:41 05/01/19 23 05/01/2022 COMPR EHENS MARCI METAB OLIC PANEL albumin/glob ulin ratio 1.8 (calc ) 1.0-2. 5 normal Not Available [address], [address], 05/01/2022 03:46:41 05/01/1905/01/2022 COMPR EHENS MARCI METAB OLIC PANEL bilirubin, total 1.3 mg/dL 0.2-1. 2 high Not Available [address], [address], 05/01/2022 03:46:41 05/01/19 23 05/01/2022 COMPR EHENS MARCI METAB OLIC PANEL alkaline phosphatase 35 U/L 35-144 normal Not Available [address], [address], 05/01/2022 03:46:41 05/01/19 23 05/01/2022 COMPR EHENS MARCI METAB OLIC PANEL AST 23 U/L 10-35 normal Not Available [address], [address], 05/01/2022 03:46:41 05/01/19 23 05/01/2022 COMPR EHENS MARCI METAB OLIC PANEL ALT 35 U/L 9-46 normal Not Available [address], [address], 05/01/2022 03:46:41 05/01/19 23 05/01/2022 HEMOG LOBIN A1C hemoglobin A1C 5.6 %_of_ total _HGB <5.7 normal For the purpo se of romelia gudinog for the prese nce of diabe adelso: <5.7% Consi stent with the absen ce of diabe adelso 5.7-6 .4% Consi stent with incre ased risk for diabe adelso (pred iabet es) > or =6.5% Consi stent with diabe adelso This assay resul t is consi stent with a decre ased risk of diabe adelso. Curre ntly, no conse nsus exist s valerio stout use of hemog lobin A1c for diagn osis of diabe adelso in child kentrell. Accor ding to Ameri can Diabe adelso Assoc iatio n (ADA) guide lines , hemog lobin A1c <7.0% repre sents optim al contr ol in non-p regna nt diabe tic patie nts. Diffe rent metri cs may apply to speci fic patie nt popul ation s. Stand ards of Medic al Care in Diabe adelso(A DA). Not Available [email or web address] [address] [address] [place], [address], 05/01/2022 03:46:42 05/01/19 23 05/01/2022 CBC (INCL UDES DIFF/ PLT) white blood cell count 6.1 thous and/u L 3.8-10 .8 normal Not Available [address] [address] [place], [address], 05/01/2022 03:46:42 05/01/19 23 05/01/2022 CBC (INCL UDES DIFF/ PLT) red blood cell count 4.57 devon on/uL 4.20-5 .80 normal Not Available [facility] [address] [address] [place], [address], 05/01/2022 03:46:42 05/01/19 23 05/01/2022 CBC (INCL UDES DIFF/ PLT) hemoglobin 14.1 g/dL 13.2-1 7.1 normal Not Available [facility] [address] [address] [place], [address], 05/01/2022 03:46:42 05/01/19 23 05/01/2022 CBC (INCL UDES DIFF/ PLT) hematocrit 41.2 % 38.5-5 0.0 normal Not Available [address], [address], 05/01/2022 03:46:42 05/01/1905/01/2022 CBC (INCL UDES DIFF/ PLT) MCV 90.2 fL 80.0-1 00.0 normal Not Available [address], [address], 05/01/2022 03:46:42 05/01/1905/01/2022 CBC (INCL UDES DIFF/ PLT) MCH 30.9 pg 27.0-3 3.0 normal Not Available [address], [address], 05/01/2022 03:46:42 05/01/19 23 05/01/2022 CBC (INCL UDES DIFF/ PLT) MCHC 34.2 g/dL 32.0-3 6.0 normal Not Available [address], [address], 05/01/2022 03:46:42 05/01/1905/01/2022 CBC (INCL UDES DIFF/ PLT) RDW 12.6 % 11.0-1 5.0 normal Not Available [address], [address], 05/01/2022 03:46:42 05/01/1905/01/2022 CBC (INCL UDES DIFF/ PLT) platelet count 206 thous and/u L 140-40 0 normal Not Available [address], [address], 05/01/2022 03:46:42 05/01/19 23 05/01/2022 CBC (INCL UDES DIFF/ PLT) MPV 12.1 fL 7.5-12 .5 normal Not Available [address], [address], 05/01/2022 03:46:42 05/01/19 23 05/01/2022 CBC (INCL UDES DIFF/ PLT) absolute neutrophils 3123 cells /uL 1500-7 800 normal Not Available [address], [address], 05/01/2022 03:46:42 05/01/19 23 05/01/2022 CBC (INCL UDES DIFF/ PLT) absolute lymphocytes 1873 cells /uL 850-39 00 normal Not Available [address], [address], 05/01/2022 03:46:42 05/01/19 23 05/01/2022 CBC (INCL UDES DIFF/ PLT) absolute monocytes 769 cells /uL 200-95 0 normal Not Available [address], [address], 05/01/2022 03:46:42 05/01/19 23 05/01/2022 CBC (INCL UDES DIFF/ PLT) absolute eosinophils 275 cells /uL 15-500 normal Not Available [address], [address], 05/01/2022 03:46:42 05/01/19 23 05/01/2022 CBC (INCL UDES DIFF/ PLT) absolute basophils 61 cells /uL 0-200 normal Not Available [facility] [address], [address], 05/01/2022 03:46:42 05/01/19 23 05/01/2022 CBC (INCL UDES DIFF/ PLT) neutrophils 51.2 % normal Not Available [address], [address], 05/01/2022 03:46:42 05/01/19 23 05/01/2022 CBC (INCL UDES DIFF/ PLT) lymphocytes 30.7 % normal Not Available [address], [address], 05/01/2022 03:46:42 05/01/1905/01/2022 CBC (INCL UDES DIFF/ PLT) monocytes 12.6 % normal Not Available [facility] [address], [address], 05/01/2022 03:46:42 05/01/1905/01/2022 CBC (INCL UDES DIFF/ PLT) eosinophils 4.5 % normal Not Available [facility] [address], [address], 05/01/2022 03:46:42 05/01/1905/01/2022 CBC (INCL UDES DIFF/ PLT) basophils 1.0 % normal Not Available [address], [address], 05/01/2022 03:46:42 05/01/1905/01/2022 URINA LYSIS , COMPL ETE color YELLOW yellow normal Not Available [address], [address], 05/01/2022 03:46:43 05/01/1905/01/2022 URINA LYSIS , COMPL ETE appearance CLEAR clear normal Not Available [address], [address], 05/01/2022 03:46:43 05/01/1905/01/2022 URINA LYSIS , COMPL ETE specific gravity 1.026 1.001- 1.035 normal Not Available [address], [address], 05/01/2022 03:46:43 05/01/1905/01/2022 URINA LYSIS , COMPL ETE pH 6.0 5.0-8. 0 normal Not Available [address] [address] [place], [address], 05/01/2022 03:46:43 05/01/1905/01/2022 URINA LYSIS , COMPL ETE glucose NEGATI VE negati ve normal Not Available [facility] [address] [place], [address], 05/01/2022 03:46:43 05/01/1905/01/2022 URINA LYSIS , COMPL ETE bilirubin NEGATI VE negati ve normal Not Available [facility] [address], [address], 05/01/2022 03:46:43 05/01/1905/01/2022 URINA LYSIS , COMPL ETE ketones NEGATI VE negati ve normal Not Available [facility] [address], [address], 05/01/2022 03:46:43 05/01/1905/01/2022 URINA LYSIS , COMPL ETE occult blood NEGATI VE negati ve normal Not Available [facility] [address], [address], 05/01/2022 03:46:43 05/01/1905/01/2022 URINA LYSIS , COMPL ETE protein NEGATI VE negati ve normal Not Available [facility] [address], [address], 05/01/2022 03:46:43 05/01/1905/01/2022 URINA LYSIS , COMPL ETE nitrite NEGATI VE negati ve normal Not Available [facility] [address], [address], 05/01/2022 03:46:43 05/01/1905/01/2022 URINA LYSIS , COMPL ETE leukocyte esterase NEGATI VE negati ve normal Not Available [facility] [address] [place], [address], 05/01/2022 03:46:43 05/01/19 23 05/01/2022 URINA LYSIS , COMPL ETE WBC NONE SEEN /hpf < or = 5 normal Not Available [address], [address], 05/01/2022 03:46:43 05/01/19 23 05/01/2022 URINA LYSIS , COMPL ETE RBC NONE SEEN /hpf < or = 2 normal Not Available [facility] [address], [address], 05/01/2022 03:46:43 05/01/19 23 05/01/2022 URINA LYSIS , COMPL ETE squamous epithelial cells NONE SEEN /hpf < or = 5 normal Not Available [facility] [address], [address], 05/01/2022 03:46:43 05/01/19 23 05/01/2022 URINA LYSIS , COMPL ETE bacteria NONE SEEN /hpf none seen normal Not Available [address], [address], 05/01/2022 03:46:43 05/01/19 23 05/01/2022 URINA LYSIS , COMPL ETE hyaline cast NONE SEEN /lpf none seen normal Not Available [address], [address], 05/01/2022 03:46:43 05/01/19 23 05/01/2022 PSA, TOTAL PSA, total 0.47 NG/mL < or = 4.00 normal The total PSA value from this assay syste m is stand ardiz ed again st the WHO stand larry. The test resul t will be appro ximat stefani 20% lower when brooks red to the equim olar- stand ardiz ed total PSA ([place] man Coult er). Brooks rison of seria l PSA resul ts shoul d be inter prete d with this fact in mind. This test was perfo rmed using the Sieme ns chemi lumin escen t metho d. Value s obtai carol from diffe rent assay metho ds canno t be used inter sifuentes eably . PSA level s, regar dless of value , shoul d not be inter prete d as absol minto evide nce of the prese nce or absen ce of disea se. Not Available [facility] [address] [place], [address], 05/01/2022 03:46:44 Result Notes None recorded. Problems Name Problem SNOMED Code Status Onset Date Resolution Date Notes Provider Name and Address Organization Details Recorded Time Benign essential hypertension 7029535 Active 2018 Not Available [facility] 3 00:48:25 On examination - hands - Heberden's nodes Active 2021 Not Available [facility] 3 00:48:25 Diabetes mellitus screening Active 2021 Not Available [facility] 3 00:48:26 Gastroesophag eal reflux disease 738461587 Active 2018 Not Available [facility] 3 00:48:26 Exposure to excess sunlight Active 2021 Not Available [facility] 3 00:48:26 Long-term drug therapy Active 2021 Not Available [facility] 3 00:48:26 Cholesterol screening Active 2021 Not Available [facility] 3 00:48:26 Screening for malignant neoplasm of prostate Active 2021 Not Available [facility] 3 00:48:26 Notes:COVID- Problem Notes None recorded. Procedures Surgical History Date Name Laterality Status Provider Name and Address Organization Details Recorded Time 07/13/19 Colonoscopy completed Not Available [facility] 04/22/2022 00:44:22 Appendectomy completed Not Available [facility] 04/22/2022 00:44:22 repair of ligament completed Not Available [facility] 04/22/2022 00:44:22 reconstruction of anterior cruciate ligament of knee joint completed Not Available [facility] 04/22/2022 00:44:22 Imaging Results None recorded. Procedure Notes None recorded. Medical Equipment None Reported. Allergies No known drug allergies Medications Name Sig Start Date Stop Date Status Note LastModified by Organization Details LastModified Time blood pressu solution kit active Not Available Not Available Not Available benzonata te 200 mg capsule 07/29 completed Not Available Not Available Not Available valsartan 160 mg-hydroc hlorothia zide 12.5 mg tablet TAKE 1 TABLET BY MOUTH EVERY DAY 09/21 completed Not Available Not Available Not Available amlodipin e 5 mg tablet TAKE 1 TABLET BY MOUTH EVERY DAY active Not Available Not Available No t Available omeprazol e 40 mg capsule,d elayed release TAKE 1 CAPSULE BY MOUTH EVERY DAY BEFORE A MEAL active Not Available Not Available No t Available erythromy selena 5 mg/gram (0.5 %) eye ointment APPLY 1 A SMALL AMOUNT ON EYELID TWICE A DAY active Not Available Not Available No t Available valsartan 320 mg tablet Please specify directio ns, refills and quantity 04/06 completed on backorde r Not Available Not Available Not Available candesart an 32 mg tablet one tab po daily. 02/11 completed Not Available Not Available Not Available methylpre dnisolone 4 mg tablets in a dose pack 07/29 completed Not Available Not Available Not Available albuterol sulfate HFA 90 mcg/actua tion aerosol inhaler active Not Available Not Available Not Available losartan 100 mg tablet TAKE 1 TABLET BY MOUTH EVERY DAY active Not Available Not Available No t Available Bystolic 5 mg tablet Take 1 tablet every day by oral route. 03/15 completed Not Available Not Available Not Available GaviLyte- G 236 gram-22.7 4 gram-6.74 gram-5.86 gram oral solution USE DIRECTED active Not Available Not Available No t Available Vitals Date Recorded Body height Body temperature Body weight Heart rate Oxygen saturation Oxygen saturation in Arterial blood by Pulse oximetry Systolic blood pressure Diastolic blood pressure Provider Name and Address Organization Details Last Updated DateTime 3 180.34 cm 97.8 [degF] 639819. 61 g 84 /min 98 % 98 % 132 mm[Hg] 82 mm[Hg] Maru Pierre RN [place] [facility] [employer] 3 09:36:42 Date Recorded Body mass index (BMI) Provider Name and Address Organization Details Last Updated DateTime 05/20/2022 32.6 kg/m2 SALVADOR Echevarria [address] [facility], [facility] [address], [place], [address], [facility] [employer] [facility] 05/20/2022 09:45:20 Date Recorded Body height Body mass index (BMI) Body weight Body temperature Heart rate Oxygen saturation Oxygen saturation in Arterial blood by Pulse oximetry Systolic blood pressure Diastolic blood pressure Provider Name and Address Organization Details Last Updated DateTime 3 180.34 cm 32.4 kg/m2 418516. 43 g 97.5 [degF] 88 /min 98 % 98 % 120 mm[Hg] 82 mm[Hg] Maru Pierre RN [facility] [employer] [facility] 3 08:56:21 Date Recorded Body mass index (BMI) Body height Oxygen saturation Oxygen saturation in Arterial blood by Pulse oximetry Heart rate Body temperature Body weight Systolic blood pressure Diastolic blood pressure Systolic blood pressure Diastolic blood pressure Provider Name and Address Organization Details Last Updated DateTime 1 32.6 kg/m2 180.34 cm 97 % 97 % 73 /min 97.9 [degF] 705387. 61 g 128 mm[Hg] 80 mm[Hg] 124 mm[Hg] 84 mm[Hg] Not Available [facility] 3 00:46:42 Date Recorded Body mass index (BMI) Body height Oxygen saturation Oxygen saturation in Arterial blood by Pulse oximetry Heart rate Respiratory rate Body temperature Body weight Systolic blood pressure Diastolic blood pressure Provider Name and Address Organization Details Last Updated DateTime 2 34.2 kg/m2 180.34 cm 97 % 97 % 74 /min 16 /min 97.5 [degF] 937819. 13 g 122 mm[Hg] 80 mm[Hg] Not Available [facility] 3 00:46:42 Date Recorded Body height Oxygen saturation Oxygen saturation in Arterial blood by Pulse oximetry Heart rate Respiratory rate Body temperature Systolic blood pressure Diastolic blood pressure Provider Name and Address Organization Details Last Updated DateTime 2 180.34 cm 97 % 97 % 69 /min 16 /min 97.8 [degF] 128 mm[Hg] 80 mm[Hg] Not Available [facility] 00:46:43 Social History Question Answer Notes LastModified by Organizat ion Details LastModified Time Tobacco Smoking Status Current Some Day Smoker cigars Not Available [facility] 04/22/2022 00:43:27 What Is Your Level Of Alcohol Consumption? Occasional [id number] Information not available 04/22/2022 What Is Your Level Of Caffeine Consumption? Moderate [id number] Information not available 04/22/2022 How Much Tobacco Do You Chew? None [id number] Information not available 04/22/2022 In The 14 Days Before Symptom Onset, Have You Had Close Contact With A Laboratory-confir med COVID-19 While That Case Was Ill? No [id number] Information not available 04/22/2022 In The 14 Days Before Symptom Onset, Have You Had Close Contact With A Person Who Is Under Investigation For COVID-19 While That Person Was Ill? No [id number] Information not available 04/22/2022 Are You Currently Employed? Yes Information not available 05/19/2022 What Type Of Diet Are You Following? REGULAR [id number] Information not available 04/22/2022 Which Illicit Or Recreational Drugs Have You Used? None [id number].[id number] Information not available 04/22/2022 Do You Or Have You Ever Used E-cigarettes Or Vape? 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 No MIGRATION.[id number] Information not available 04/22/2022 Are There Any Guns Present In Your Home? Yes [id number].[id number] Information not available 04/22/2022 Do You Use Insect Repellent Routinely? No MIGRATION.[id number] Information not available 04/22/2022 What Is Your Relationship Status? [id number].[id number] Information not available 04/22/2022 Do You Use Your Seat Belt Or Car Seat Routinely? Yes MIGRATION.[id number] 5791 Information not available 04/22/2022 Do You Have Smoke And Carbon Monoxide Detectors In Your Home? Yes MIGRATION.077123 7175 Information not available 04/22/2022 Do You Or Have You Ever Used Smokeless Tobacco? Never Used Smokeless Tobacco MIGRATION.[id number] 8615 Information not available 04/22/2022 Do You Use Any Illicit Or Recreational Drugs? No MIGRATION.[id number] 8834 Information not available 04/22/2022 Do You Use Sunscreen Routinely? Yes MIGRATION.[id number] Information not available 04/22/2022 Have You Recently Traveled Abroad? No MIGRATION.[id number] 7846 Information not available 04/22/2022 Do You Have Any Dietary Restrictions? No MIGRATION.[id number] 4356 Information not available 04/22/2022 Do You Or Have You Ever Used Any Other Forms Of Tobacco Or Nicotine? No MIGRATION.[id number] 4993 Information not available 04/22/2022 Sex: Unknown Functional Status Question Answer Note LastModified by Organizat ion Details LastModified Time What is your exercise level? Moderate [id number] Information not available 04/22/2022 Mental Status None recorded. Family History Relationship Description Onset Age of this Age Resolved Age Notes LastModified by Organization Details LastModified Time Father Malignant neoplasm of lung [id number] Not available 04/22/2022 00:44:26 Paternal Grandfather Parkinson's disease [id number] Not available 04/22/2022 00:44:26 Brother Hypertensive disorder [id number] Not available 04/22/2022 00:44:26 Sister Hypertensive disorder [id number] Not available 04/22/2022 00:44:26 Medical History Condition Response NERVE DISEASE N BLINDNESS N RHEUMATIC FEVER N KIDNEY STONES N BLADDER PROBLEMS N OTHER # 1 N POLIO N LUNG DISEASE/DISORDER N RADIATION / CHEMOTHERAPY N COPD N Other # 2 N BLOOD DISEASES N SURGERY N EAR OR HEARING PROBLEMS N MUMPS N BOWEL PROBLEMS N DEPRESSION (INCLUDING POST ) N STROKE/TIA N ULCERS N BENIGN PROSTATIC HYPERPLASIA N MEASLES N MYOCARDIAL INFARCTION N OBESITY N GERD/NAUSEA N ANEURYSM N URINARY/BLADDER/KIDNEY PROBLEMS N INPATIENT PSYCH CARE N CORONARY ARTERY DISEASE (CAD) N ADDICTION CONCERNS N Impotence N ENDOMETRIOSIS N USE OF BLOOD THINNERS N SKIN PROBLEMS N GASTROINTESTINAL DISORDER N PERIPHERAL VASCULAR DISEASE N MUSCLE,JOINT OR BONE PROBLEMS N GASTROINTESTINAL BLEEDING N BLOOD CLOTS N ASTHMA N CATARACTS N ERECTILE DYSFUNCTION N VARICOSITIES N GI PROBLEMS N Low Testosterone N INFERTILITY N AIDS/HIV N LIVER DISEASE N MALE HYPOGONADISM N HYPERTENSION Y Deficiency N ANXIETY DISORDER N BLOOD TRANSFUSION N ANEMIA/BLOOD DISORDER N CHRONIC EAR INFECTIONS N BRONCHITIS N TUBERCULOSIS N GLAUCOMA N DIVERTICULITIS N SLEEP APNEA N CHICKENPOX N INFECTIOUS DISEASE N PROSTATE N HEART ARRHYTHMIA N INSOMNIA N HIGH CHOLESTEROL / HYPERLIPIDEMIA N EYE PROBLEMS N HYPERTHYROIDISM N NEUROLOGICAL PROBLEMS N EDEMA N CHRONIC PAIN SYNDROME N HYPOTHYROIDISM N CONSTIPATION N CAROTID BLOCKAGE N BACK / NECK PROBLEMS N HAVE YOU BEEN HOSPITALIZED OR SEEN IN [facility] IN THE PAST YEAR ? N ATHEROSCLEROSIS N BREAST PROBLEMS N DIALYSIS N ECZEMA N OSTEOPOROSIS N ARTHRITIS N NO SIGNIFICANT PAST MEDICAL HISTORY N APPENDICITIS N DIABETES, TYPE N BAD TEETH N ENT N HEARTBURN / REFLUX Y AUTISM SPECTRUM DISORDER (ASD) N HEPATITIS / LIVER DISEASE N PULMONARY DISEASE N GOUT N SLEEP DISORDER N ALZHEIMER'S DISEASE N Brain Problems N DEMENTIA N HERPES N SEIZURES/EPILEPSY N HEADACHES/MIGRAINES N VASCULAR DISEASE N PACEMAKER N Blood Disorder N DIZZINESS N HEART DISEASE/HEART PROBLEMS N KIDNEY DISEASE N MULTIPLE SCLEROSIS N CANCER: SPECIFY N CARDIAC ARRHYTHMIA N ANESTHESIA COMPLICATIONS N ATRIAL FIBRILLATION N Gall Stones N PULMONARY EMBOLISM N AUTOIMMUNE DISEASE N Past Encounters Encounter ID Performer Location Encounter Start Date Encounter Closed Date Diagnosis/Indication Diagnosis SNOMED-CT Code Diagnosis ICD10 Code Diagnosis Note [id number] SALVADOR Echevarria [facility] [place] [address] [place] [address] 04/26/2020 00:00:00 05/18/2020 16:39:16 [id number] SALVADOR Echevarria [facility] [place] [address] [address], [address] [place] [address] 10/25/2020 00:00:00 11/21/2020 17:28:08 [id number] SALVADOR Echevarria [facility] [place] [address] [facility] [address] [place] [address] 04/25/2021 00:00:00 05/22/2021 17:43:22 [id number] SALVADOR Echevarria [facility] [place] [address] [facility] [address] [place] [address] 11/19/2021 00:00:00 11/19/2021 10:16:20 [id number] SALVADOR Echevarria [facility] [place] [address] [place] [address] 05/20/2022 09:31:17 05/20/2022 10:01:47 Benign essential hypertension 5843473 I10 stable on amlodipine 5mg , losartan 100mg daily. Gastroesop hageal reflux disease 809956226 K21.9 stable on omeprazole 40mg daily. Long-term drug therapy 317242784 Z79.899 labs are all [facility] Adult heal th examination 295765467 Z00.01 annual wellness completed [id number] SALVADOR Echevarria [facility] [place] [address] [place] [address] 11/18/2022 08:51:52 11/18/2022 09:37:39 Benign essential hypertension 1428779 I10 stable on amlodipine 5mg , losartan 100mg daily. Gastroesop hageal reflux disease 129137017 K21.9 stable on omeprazole 40mg daily. Long-term drug therapy 101362787 Z79.899 annual labs due in april 2023. Cholesterol screening 27 9073705 Z13.220 Diabetes m ellitus screening 642287515 Z13.1 Screening for malignant neoplasm of prostate 764069633 Z12.5 Health Concerns Section Related Observation LastModified by Organization Detai ls LastModified Time None Recorded Concern Status LastModified by Organization Details LastModified Time None Recorded Advance Directives Directive None Recorded Payers Encounter Date Sequence Insurance Name Policy Number Policy Isaacs Covered Member ID Isaacs Member ID Guarantor Name 05/20/2022 1 [employer] - CHOICE (POS II) [id number] Terri Gonzales [id number] Shaun Gonzales 11/18/2022 1 [employer] - CHOICE (POS II) [id number] Terri Gonzales [id number] Shaun Gonzales Notes Date Note Type Note Provider Name and Address Organization Details Recorded Time 1 text/html HypertensionReported bypatient.Onset/Timing:be tter Self Care:not under emotional stress Associated Symptoms:no shortness of breath; no fatigue; no palpitations; no decline in exercise capacity; no snoringReflux/GERDReporte d bypatient.Symptomsasympto matic; no difficulty swallowing; no pain swallowing; no postprandial pain Severity:improving Context:non-smoker; no drug/alcohol abuse; no drug alcohol withdrawal; not related to food/drink Associated Symptoms:no frequent coughing; no feeling of fullness/mass in throat; no hoarseness; no food getting stuck; no belching/burping; no nausea; no vomiting; not vomiting blood; no regurgitation; no shortness of breath; no chest pain; no heartburn; no difficulty swallowing; no pain when swallowing; no bad taste; no decreased appetite; no weight loss; no black/tarry stools; no fatigue; no throat pain; no dental erosion; no bloating; no early satiety; no halitosis Not Available [facility] 11/21/2020 17:28:08 2 text/html HypertensionReported bypatient.Duration:has noted for years Onset/Timing:better Alleviating Factors:medication Self Care:not under emotional stress Associated Symptoms:no shortness of breath; no fatigue; no palpitations; no decline in exercise capacity; no snoringReflux/GERDReporte d bypatient.Symptomsasympto matic; no difficulty swallowing; no pain swallowing; no postprandial pain Severity:same Duration:present 5 or more years Onset/Timing:gone now Context:non-smoker; no drug/alcohol abuse; no drug alcohol withdrawal; not related to food/drink Associated Symptoms:no frequent coughing; no hoarseness; no food getting stuck; no belching/burping; no vomiting; not vomiting blood; no regurgitation; no shortness of breath; no chest pain; no heartburn; no difficulty swallowing; no pain when swallowing; no bad taste; no decreased appetite; no weight loss; no black/tarry stools; no fatigue; no throat pain; no dental erosion; no bloating; no early satiety; no halitosis Not Available [facility] 05/22/2021 17:43:22 2 text/html HypertensionReported bypatient.Duration:has noted for years Onset/Timing:better Alleviating Factors:medication Self Care:not under emotional stress Associated Symptoms:no shortness of breath; no fatigue; no palpitations; no decline in exercise capacity; no snoringReflux/GERDReporte d bypatient.Symptomsasympto matic; no difficulty swallowing; no pain swallowing; no postprandial pain Severity:same Duration:present 5 or more years Onset/Timing:gone now Context:non-smoker; no drug/alcohol abuse; no drug alcohol withdrawal;related to any meal Alleviating Factors:medication Aggravating Factors:worsened by food Associated Symptoms:no frequent coughing; no hoarseness; no food getting stuck; no belching/burping; no vomiting; not vomiting blood; no regurgitation; no shortness of breath; no chest pain; no heartburn; no difficulty swallowing; no pain when swallowing; no bad taste; no decreased appetite; no weight loss; no black/tarry stools; no fatigue; no throat pain; no dental erosion; no bloating; no early satiety; no halitosis Not Available [facility] 11/19/2021 10:16:20 3 text/html HypertensionReported bypatient.Onset/Timing:be tter Alleviating Factors:medication Associated Symptoms:no shortness of breath; no fatigue; no palpitations; no decline in exercise capacity; no snoringReflux/GERDReporte d bypatient.Severity:improv ing Context:non-smoker; no drug/alcohol abuse; no drug alcohol withdrawal; not related to food/drink Alleviating Factors:medication Associated Symptoms:no frequent coughing; no feeling of fullness/mass in throat; no hoarseness; no food getting stuck; no belching/burping; no vomiting; not vomiting blood; no regurgitation; no shortness of breath; no chest pain; no heartburn; no difficulty swallowing; no pain when swallowing; no bad taste; no decreased appetite; no weight loss; no black/tarry stools; no fatigue; no throat pain SALVADOR Echevarria [address], [address], [facility] 05/20/2022 21:04:06 3 text/html HypertensionReported bypatient.Onset/Timing:be tter Alleviating Factors:medication Associated Symptoms:no shortness of breath; no fatigue; no palpitations; no decline in exercise capacity; no snoringReflux/GERDReporte d bypatient.Severity:improv ing Context:non-smoker; no drug/alcohol abuse; no drug alcohol withdrawal; not related to food/drink Alleviating Factors:medication Associated Symptoms:no frequent coughing; no feeling of fullness/mass in throat; no hoarseness; no food getting stuck; no belching/burping; no vomiting; not vomiting blood; no regurgitation; no shortness of breath; no chest pain; no heartburn; no difficulty swallowing; no pain when swallowing; no bad taste; no decreased appetite; no weight loss; no black/tarry stools; no fatigue; no throat pain SALVADOR Echevarria [address] [facility], [facility] [address], [place], [address], [place] [facility] 11/18/2022 09:24:23
[2024-06-23 07:04] VITALS: BP 141/80; PULSE 65; RESP 20; TEMP 36.4; O2SAT 99
[2024-06-23] MEDS: LACTATED RINGERS 1,000 ML 150 ML IV CONT (07:13)
--- NOTE | 2024-06-23 08:11 | PM.HPGS ---
History of Present Illness History of Present Illness Consent: Risks, benefits, and alternatives have been discussed and questions answered. Patient agrees to proceed with procedure. Chief complaint: personal hx colon polyps Narrative: Shaun Paniagua III is a 64 year old male with h/o colon polyp, last colonoscopy 2019 Review of Systems Review of Systems: All systems reviewed & are unremarkable except as noted in HPI and below PMFSH Past Medical History Medical History (Updated 06/23/24 @ 08:11 by Yaakov Barragan MD) Colon polyp GERD (gastroesophageal reflux disease) Hypertension Surgical History Surgical History Status post total right knee replacement (~01/27/24) Family History Family History Father Hypertension Family history of lung cancer Family history of malignant neoplasm of brain Mother Family history of glaucoma Other Carcinoma of colon Social History Social History Smoking status: Current some day smoker Tobacco type: cigars Smoking end date: 12/24/23 Additional smoking assessment comments: No cigars in 10 days Alcohol intake: current Drinks per week: 1 Substance use: current Substance use type: other Other substance usage details: gummies to sleep few times a month Living arrangements: with family Additional living arrangements comments: Gender identity (if verbalized by the patient): Male Spiritual care concerns: No Meds Home Medications and Allergies Home Medications ?Medication ?Instructions ?Recorded ?Confirmed ?Type losartan 100 mg tablet 100 mg PO DAILY 07/07/19 06/23/24 History omeprazole 40 mg capsule,delayed 40 mg PO DAILY 07/07/19 06/23/24 History release amlodipine 10 mg tablet 10 mg PO DAILY 01/05/24 06/23/24 History Allergies Allergy/AdvReac Type Severity Reaction Status Date / Time No Known Allergies Allergy Unknown Verified 06/23/24 07:02 Vital Signs Vital Signs - 24 hr 06/23/24 07:04 Temperature 97.5 F L Pulse Rate 65 Respiratory Rate 20 Blood Pressure 141/80 H Pulse Oximetry 99 Oxygen Delivery Room Air Exam Const: General: comfortable and no acute distress HENMT: Face/Nose/Sinus: Normal nares present Eyes: General: appearance normal, both eyes and all related structures Neck: Neck: no JVD Resp: Auscultation: clear to auscultation bilaterally Cardio: Rate: regular rate Rhythm: regular rhythm GI: Inspection: non-distended GI Palp: Yes Soft to palpation Skin: General skin exam: normal color Neuro: General: gait normal Speech: normal speech Extrem: General: normal to inspection Psych: Mental Status: mental status grossly normal Assessment and Plan Assessment and plan (1) Colon polyp: Code(s): K63.5 - Polyp of colon Status: Acute Assessment and Plan: colonoscopy
[2024-06-23 08:25] VITALS: BP 127/74; PULSE 61; RESP 15; O2SAT 93
[2024-06-23 08:35] VITALS: BP 132/73; PULSE 64; RESP 19; O2SAT 100
[2024-06-23 08:45] VITALS: BP 130/73; PULSE 58; RESP 21; O2SAT 100
== END 2024-06-23 08:58 | disposition home or self-care (01) ==
PROVIDERS: PCP Physician Assistant; Referring Provider Physician Assistant; Visit Provider Internal Medicine Gastroenterology
PROC: 0DJD8ZZ Inspection of Lower Intestinal Tract, Via Natural or Artificial Opening Endoscopic (ICD-10-PCS; CPT 45378; principal; 2024-06-23 08:30)
DX: Z12.11 Encounter for screening for malignant neoplasm of colon (principal); K64.8 Other hemorrhoids; I10 Essential (primary) hypertension; K21.9 Gastro-esophageal reflux disease without esophagitis; F12.90 Cannabis use, unspecified, uncomplicated; Z98.890 Other specified postprocedural states; Z86.0100 Personal history of colon polyps, unspecified; Z80.1 Family history of malignant neoplasm of trachea, bronchus and lung; Z80.8 Family history of malignant neoplasm of other organs or systems; Z80.0 Family history of malignant neoplasm of digestive organs
CPT/HCPCS: 45378; J2003; J2704; J7120